=== PATIENT | male | born 1950 | race Hispanic/Latino ===

== ENCOUNTER 2023-11-11 12:09 | Emergency (ER) | payer MEDICARE ==
[~2023-11-11] VITALS: Ht 165.1 cm; Wt 72.6 kg
[2023-11-11 12:40] VITALS: PULSE 89; RESP 15; TEMP 97.9; O2SAT 100
== END 2023-11-11 14:20 | disposition home or self-care (01) ==
LOC: ER 12:58
DX: M25.512 Pain in left shoulder (principal); W01.0XXA Fall on same level from slipping, tripping and stumbling without subsequent striking against object, initial encounter; Y93.01 Activity, walking, marching and hiking; Y92.89 Other specified places as the place of occurrence of the external cause; I10 Essential (primary) hypertension; E11.9 Type 2 diabetes mellitus without complications; Z85.89 Personal history of malignant neoplasm of other organs and systems
CPT/HCPCS: 99283